=== PATIENT | female | born 1995 | race Caucasian/White ===

== ENCOUNTER 2018-11-09 17:40 | Emergency (ER) | payer MEDICAID ==
[~2018-11-09] VITALS: Ht 167.6 cm; Wt 67.2 kg
[2018-11-09 18:14] VITALS: Ht 167.6 cm; Wt 67.2 kg
[2018-11-09 20:03] LABS: BASOPHIL % 0.1 % (0-2); PLATELET COUNT 302 x10^3mcL (130-400); RED CELL DISTRIBUTION WIDTH 14.4 % (11.5-14.5)
[2018-11-09 20:19] LABS: CALCIUM 8.7 mg/dL (8.5-10.1); CARBON DIOXIDE 25.6 mmol/L (21-32); CHLORIDE SERUM 107 mmol/L (98-107); CREATININE SERUM 0.7 mg/dL (0.6-1.0); GFR1 > 60 mL/min; GLUCOSE SERUM 99 mg/dL (74-106); POTASSIUM SERUM 3.6 mmol/L (3.5-5.1); SODIUM SERUM 142 mmol/L (136-145)
[2018-11-09 20:24] LABS: ALBUMIN 3.5 g/dL (3.4-5.0); ALKALINE PHOSPHATASE 74 U/L (46-116); ALT/SGPT 28 U/L (14-59); AST/SGOT 33 U/L (15-37); BILIRUBIN TOTAL 1.1 mg/dL (0.20-1.00); LIPASE 102 IU/L (73-393); TOTAL PROTEIN, SERUM 6.9 g/dL (6.4-8.2)
[2018-11-09 20:49] LABS: microscopic required? YES; urine erythrocyte 2+ (NEGATIVE)
[2018-11-09 22:48] VITALS: BP 100/51
== END 2018-11-09 22:49 | disposition home or self-care (01) ==
LOC: ED 17:40
PROVIDERS: Emergency Medicine
DX: R10.13 Epigastric pain (principal); R11.2 Nausea with vomiting, unspecified; K59.00 Constipation, unspecified; R19.7 Diarrhea, unspecified
CPT/HCPCS: J1885; J2405; J7030; Q0092